=== PATIENT | female | born 1945 | race Caucasian/White ===

== ENCOUNTER 2018-06-10 18:26 | Emergency (ER) | payer OTHER ==
[~2018-06-10] VITALS: Ht 162.6 cm; Wt 86.2 kg
[2018-06-10 19:22] VITALS: Ht 162.6 cm; Wt 86.2 kg
[2018-06-10 19:55] LABS: microscopic required? NO
[2018-06-10 20:06] LABS: BASOPHIL % 0.3 % (0-2); PLATELET COUNT 310 x10^3mcL (130-400); RED CELL DISTRIBUTION WIDTH 13.2 % (11.5-14.5)
[2018-06-10 20:07] LABS: urine erythrocyte NEGATIVE (NEGATIVE)
[2018-06-10 20:14] LABS: CARBON DIOXIDE 31.2 mmol/L (21-32); CHLORIDE SERUM 106 mmol/L (98-107); CREATININE SERUM 0.9 mg/dL (0.6-1.0); GLUCOSE SERUM 156 mg/dL (74-106); POTASSIUM SERUM 4.7 mmol/L (3.5-5.1); SODIUM SERUM 146 mmol/L (136-145)
[2018-06-10 20:26] LABS: ALBUMIN 3.8 g/dL (3.4-5.0); ALKALINE PHOSPHATASE 79 U/L (46-116); ALT/SGPT 38 U/L (14-59); AMYLASE 55 U/L (25-115); AST/SGOT 24 U/L (15-37); BILIRUBIN TOTAL 0.56 mg/dL (0.20-1.00); LIPASE 143 IU/L (73-393); MAGNESIUM 1.9 mg/dL (1.8-2.4); T4(THYROXINE) 6.4 ug/dL (4.7-13.3); TOTAL PROTEIN, SERUM 7.9 g/dL (6.4-8.2)
[2018-06-10 20:27] LABS: CHOLESTEROL 234 mg/dL (<200)
[2018-06-10 20:28] LABS: HDL CHOLESTEROL 66 mg/dL (40-60)
[2018-06-10 20:28] LABS: AMPHETAMINE QUAL UR NONE DETECTED (See below)
[2018-06-10 22:33] VITALS: BP 134/73
== END 2018-06-10 22:33 | disposition left against medical advice (07) ==
LOC: ED 18:26
PROVIDERS: Emergency Medicine
DX: R55 Syncope and collapse (principal); E11.9 Type 2 diabetes mellitus without complications; I10 Essential (primary) hypertension; E78.00 Pure hypercholesterolemia, unspecified; E66.9 Obesity, unspecified; Z98.890 Other specified postprocedural states; Z88.2 Allergy status to sulfonamides; Z88.1 Allergy status to other antibiotic agents
CPT/HCPCS: 36415; 82962; 83880; J7030; Q0092